=== PATIENT | female | born 1975 | race Two or more races ===

== ENCOUNTER 2022-09-10 12:16 | Emergency (ER) | payer OTHER ==
[~2022-09-10] VITALS: Ht 160 cm; Wt 154.2 kg
[2022-09-10] MEDS ORDERED: METFORMIN HCL1000 M2 PO (12:36)
[2022-09-10] MEDS ORDERED: TENORMIN25 MG PO (12:37)
[2022-09-10] MEDS ORDERED: ZESTORETIC 20-1 EAC1 PO (12:37)
[2022-09-10] MEDS ORDERED: LEVOFLOXACIN750 MG PO (17:45)
== END 2022-09-10 19:11 | disposition home or self-care (01) ==
LOC: ER 12:16
DX: N39.0 Urinary tract infection, site not specified (principal); E11.9 Type 2 diabetes mellitus without complications; Z79.84 Long term (current) use of oral hypoglycemic drugs; Z88.8 Allergy status to other drugs, medicaments and biological substances; I10 Essential (primary) hypertension; K76.0 Fatty (change of) liver, not elsewhere classified